=== PATIENT | male | born 1990 | race Caucasian/White ===

== ENCOUNTER 2019-03-29 12:54 | Emergency (ER) | payer OTHER, SELFPAY ==
[2019-03-29] MEDS ORDERED: predniSONE 20 MG TAB ONE (13:51)
[2019-03-29] MEDS ORDERED: Acetaminophen 500 MG TAB ONE (13:51)
--- NOTE | 2019-03-29 14:24 | RAD ---
XR Chest Pa Lat STANDARD HISTORY: Cough and congestion COMPARISON: None. FINDINGS: Heart size and mediastinum are within normal limits. The lungs are clear of infiltrates. No significant bony findings. IMPRESSION: No active intrathoracic disease.
== END 2019-03-29 14:31 | disposition home or self-care (01) ==
LOC: ERS 12:54
DX: J06.9 Acute upper respiratory infection, unspecified (principal); J45.909 Unspecified asthma, uncomplicated; F41.9 Anxiety disorder, unspecified; F32.9 Major depressive disorder, single episode, unspecified; F17.210 Nicotine dependence, cigarettes, uncomplicated; Z71.6 Tobacco abuse counseling
CPT/HCPCS: 71046; 87804; 99406; J7512

== ENCOUNTER 2019-06-07 23:21 | Emergency (ER) | payer OTHER | END 2019-06-07 23:22 | disposition left against medical advice (07) | LOC: ERS 23:21 | DX: Z53.21 Procedure and treatment not carried out due to patient leaving prior to being seen by health care provider (principal) ==